=== PATIENT | male | born 1960 | race Caucasian/White ===

== ENCOUNTER 2021-02-10 12:53 | Outpatient (CLI) | payer BC, SELFPAY ==
--- NOTE | ~2021-02-10 | US_ITS ---
EXAMINATION: US venous doppler [facility] DATE: 02/10/2021 13:24 INDICATION: Left lower crow swelling TECHNIQUE: Ragsdale scale images without and with compression and Doppler images of the left lower extrem ity veins were obtained. COMPARISON: None FINDINGS: The left common femoral vein, profunda femoral vein, femoral vein, and greater saphenous ve in are patent. There is thrombosis of the left popliteal vein, peroneal trunk, posterior tibial, susana rocnemius, and soleus veins. IMPRESSION: 1. Deep venous thrombosis of the left popliteal vein, peroneal trunk, posterior tibial, gastrocnemius , and soleus veins. Reviewed, dictated and finalized at location B. IMPRESSION: 1. Deep venous thrombosis of the left popliteal vein, peroneal trunk, posterior tibial, gastrocnemius, and soleus veins.
== END 2021-02-10 12:54 | disposition home or self-care (01) ==
LOC: ANHIMG 13:00
PROVIDERS: PCP Family Medicine; Visit Provider Family Medicine
DX: M79.89 Other specified soft tissue disorders (principal); I82.432 Acute embolism and thrombosis of left popliteal vein; I82.452 Acute embolism and thrombosis of left peroneal vein; I82.442 Acute embolism and thrombosis of left tibial vein; I82.462 Acute embolism and thrombosis of left calf muscular vein; I82.4Z2 Acute embolism and thrombosis of unspecified deep veins of left distal lower extremity
CPT/HCPCS: 93971

== ENCOUNTER → 2021-07-07 14:54 | Outpatient (CLI) | payer BC, SELFPAY ==
--- NOTE | ~2021-07-07 | US_ITS ---
EXAMINATION: US venous doppler [facility] DATE: 07/07/2021 15:26 INDICATION: Acute embolism and thrombosis of unspecified deep vein. TECHNIQUE: Grayscale ultrasound images without and with compression and Doppler ultrasound images of the left lower extremity veins were obtained. COMPARISON: Ultrasound 02/02/2021 FINDINGS: The visualized portions of left common femoral vein, profunda (deep) femoral vein, femoral vein, verona michael veins, posterior tibial veins, and greater saphenous vein outflow are patent. There is nonocclus austin thrombus in left popliteal vein. IMPRESSION: 1. Nonocclusive thrombus in left popliteal vein with interval improvement in distribution. Reviewed, dictated and finalized at location B. ENT COUNSELOR IMPRESSION: 1. Nonocclusive thrombus in left popliteal vein with interval improvement in d istribution.
== END ==
PROVIDERS: PCP Family Medicine; Visit Provider Family Medicine
DX: I82.432 Acute embolism and thrombosis of left popliteal vein (principal)
CPT/HCPCS: 93971

== ENCOUNTER 2021-09-11 10:21 | Outpatient (CLI) | payer BC, SELFPAY ==
[2021-09-11 12:41] LABS: SARS-CoV-2 RNA PCR Positive (Negative)
== END 2021-09-11 10:22 | disposition home or self-care (01) ==
LOC: CHSLAB 10:23
PROVIDERS: PCP Family Medicine; Visit Provider Family Medicine
DX: U07.1 COVID-19 (principal); R68.89 Other general symptoms and signs; R05.9 Cough, unspecified; R68.83 Chills (without fever)
CPT/HCPCS: C9803; U0003; U0005

== ENCOUNTER 2021-10-30 09:28 | Outpatient (CLI) | payer BC, SELFPAY ==
--- NOTE | ~2021-10-30 | US_ITS ---
EXAMINATION:US venous doppler LE LT INDICATION:History of left deep venous thrombosis. Patient on blood thinners. TECHNIQUE: Multiple grayscale, color flow and Doppler images of the left lower extremity deep venous systems were obtained and reviewed. COMPARISON:07/07/2022 FINDINGS: The common femoral, and superficial femoral veins demonstrate normal respiratory variation, augmentation and compressibility. Color flow is also seen within the posterior tibial, peroneal, gr eater saphenous and profunda veins. There is chronic partially occlusive deep venous thrombosis of th e left popliteal vein. IMPRESSION: 1: Chronic partially occlusive deep venous thrombosis of the left popliteal vein. Reviewed, dictated and finalized at location B. IMPRESSION: 1: Chronic partially occlusive deep venous thrombosis of the left popliteal latisha mustafa
== END 2021-10-30 09:29 | disposition home or self-care (01) ==
LOC: ANHIMG 09:30
PROVIDERS: PCP Family Medicine; Visit Provider Internal Medicine Hematology & Oncology
DX: I82.4Y2 Acute embolism and thrombosis of unspecified deep veins of left proximal lower extremity (principal)
CPT/HCPCS: 93971

== ENCOUNTER 2022-02-09 08:47 | Outpatient (CLI) | payer BC, SELFPAY ==
--- NOTE | ~2022-02-09 | US_ITS ---
EXAMINATION: US venous doppler [facility] DATE: 02/09/2022 09:13 INDICATION: Deep venous thrombosis TECHNIQUE: Ragsdale scale images without and with compression and Doppler images of the left lower extrem ity veins were obtained. COMPARISON: 10/30/2021 FINDINGS: There is chronic eccentric thrombus in the left popliteal vein with improvement since the c omparison examination. The left common femoral vein, profunda femoral vein, femoral vein, peroneal tr unk, posterior tibial veins, and greater saphenous vein are patent. IMPRESSION: 1. Persistent partial thrombosis of the left popliteal vein with improvement since the comparison exa mination. Reviewed, dictated and finalized at location A. IMPRESSION: 1. Persistent partial thrombosis of the left popliteal vein with improvement si nce the comparison examination.
== END 2022-02-09 08:48 | disposition home or self-care (01) ==
PROVIDERS: PCP Family Medicine; Visit Provider Internal Medicine Hematology & Oncology
DX: I82.432 Acute embolism and thrombosis of left popliteal vein (principal)
CPT/HCPCS: 93971

== ENCOUNTER 2022-04-29 09:57 | Outpatient (CLI) | payer BC, SELFPAY ==
[2022-04-29 18:48] LABS: Alanine Aminotransferase 88 U/L (6-50); Albumin Level 4.4 g/dL (3.5-5.1); Alkaline Phosphatase 141 U/L (38-126); Anion Gap 14 mmol/L (8-16); Aspartate Amino Transferase 106 U/L (17-59); Bilirubin,Total 0.4 mg/dL (0.2-1.3); Blood Urea Nitrogen 10 mg/dL (9-20); Calcium 9.2 mg/dL (8.4-10.2); Carbon Dioxide 26 mmol/L (22-30); Chloride 103 mmol/L (98-107); Estimated Glomerular Filt Rate > 60; Glucose 104 mg/dL (65-110); Potassium 4.1 mmol/L (3.4-5.0); Sodium 143 mmol/L (137-145)
[2022-04-29 19:39] LABS: Hepatitis B Surface Antigen Negative (Negative)
[2022-04-29 19:44] LABS: HAV RESULT Negative (Negative); Hepatitis B Core IgM Result Negative (Negative)
[2022-04-29 19:56] LABS: Hepatitis C Virus Antibody Negative (Negative)
[2022-05-05 07:56] LABS: Testosterone Free 62.4 pg/mL (35.0-155.0); Testosterone Total 557 ng/dL (250-1100)
== END 2022-04-29 09:58 | disposition home or self-care (01) ==
LOC: ANHGOSHLAB 10:03
PROVIDERS: PCP Family Medicine; Visit Provider Family Medicine
DX: R79.89 Other specified abnormal findings of blood chemistry (principal); R53.83 Other fatigue
CPT/HCPCS: 36415; 80053; 80074; 84402; 84403; 84443

== ENCOUNTER → 2022-05-25 10:52 | Outpatient (CLI) | payer BC, SELFPAY ==
--- NOTE | ~2022-05-25 | US_ITS ---
EXAMINATION: US venous doppler [facility] DATE: 05/25/2022 11:12 INDICATION: Left lower limb deep venous thrombosis currently anticoagulated. TECHNIQUE: Grayscale ultrasound images without and with compression and Doppler ultrasound images of the left lower extremity veins were obtained. COMPARISON: None. FINDINGS: The left popliteal vein is partially compressible with persistent nonocclusive peripheral hypoechoic thrombus with peripheral linear echogenic margins consistent with chronic thrombus. The visualized po rtions of left common femoral vein, profunda (deep) femoral vein, femoral vein, peroneal veins, poste rior tibial veins, gastrocnemius vein and greater saphenous vein outflow are patent. IMPRESSION: 1. Persistent chronic nonocclusive deep venous thrombus in the left popliteal vein. No new deep veno us thrombosis in the left lower limb. Reviewed, dictated and finalized at location B. IMPRESSION: 1. Persistent chronic nonocclusive deep venous thrombus in the left popliteal vein. No new deep venous thrombosis in the left lower limb.
== END ==
PROVIDERS: PCP Internal Medicine Hematology & Oncology; Visit Provider Internal Medicine Hematology & Oncology
DX: I82.532 Chronic embolism and thrombosis of left popliteal vein (principal)
CPT/HCPCS: 93971

== ENCOUNTER 2022-10-29 12:38 | Outpatient (CLI) | payer SELFPAY ==
[2022-10-29 19:42] LABS: Alanine Aminotransferase 100 U/L (6-50); Albumin Level 4.4 g/dL (3.5-5.1); Alkaline Phosphatase 148 U/L (38-126); Anion Gap 11 mmol/L (8-16); Aspartate Amino Transferase 115 U/L (17-59); Bilirubin,Total 0.8 mg/dL (0.2-1.3); Blood Urea Nitrogen 9 mg/dL (9-20); Calcium 9.3 mg/dL (8.4-10.2); Carbon Dioxide 25 mmol/L (22-30); Chloride 108 mmol/L (98-107); Cholesterol 168 mg/dL (0-200); Estimated Glomerular Filt Rate > 60; Glucose 111 mg/dL (65-110); HDL Direct 43 mg/dL; Potassium 4.5 mmol/L (3.4-5.0); Sodium 144 mmol/L (137-145); Triglycerides 95 mg/dL (<150); Uric Acid 8.1 mg/dL (3.5-8.5)
[2022-10-29 19:52] LABS: LDL Cholesterol Direct 96 mg/dL
[2022-10-29 20:11] LABS: Prostate Specific Antigen 0.7 ng/mL (< OR = 4.0)
[2022-10-29 20:24] LABS: Vitamin D 25 Hydroxy 47.5 ng/mL
[2022-10-29 20:47] LABS: Basophils Percent Auto 0.5 % (0.2-1.2); Eosinophils Absolute Auto 0.1 K/mm3 (0-0.3); Eosinophils Percent Auto 2.4 % (0-4.4); Hematocrit 44.8 % (42.0-52.0); Hemoglobin 15.6 g/dL (14.0-18.0); Immature Granulocyte Absolute 0.01 K/mm3 (0.00-0.031); Immature Granulocyte Percent A 0.3 % (0-0.5); Lymphocytes Absolute Auto 1.71 K/mm3 (0.9-3.2); Lymphocytes Percent Auto 45.5 % (18.3-44.2); Mean Corpuscular HGB Conc 34.8 g/dl (32-36); Mean Corpuscular Hemoglobin 34.8 pg (26-34); Mean Platelet Volume 12.3 fl (7.4-10.4); Monocytes Absolute Auto 0.6 K/mm3 (0.1-0.6); Monocytes Percent Auto 14.6 % (2.6-8.5); Neutrophils Absolute Auto 1.4 K/mm3 (1.3-6.7); Neutrophils Percent Auto 36.7 % (45.5-73.1); Platelet Count Result 112 k/mm3 (150-375); Red Blood Count 4.48 M/mm3 (4.6-6.20); Red Cell Distribution Width 11.9 % (11.5-14.5); White Blood Count 3.8 K/mm3 (4.5-10.0)
== END 2022-10-29 12:39 | disposition home or self-care (01) ==
LOC: ANHGOSHLAB 12:39
PROVIDERS: PCP Family Medicine; Visit Provider Family Medicine
DX: Z00.00 Encounter for general adult medical examination without abnormal findings (principal); Z13.29 Encounter for screening for other suspected endocrine disorder; R79.89 Other specified abnormal findings of blood chemistry; I10 Essential (primary) hypertension; Z13.220 Encounter for screening for lipoid disorders; E53.8 Deficiency of other specified B group vitamins; E55.9 Vitamin D deficiency, unspecified; Z12.5 Encounter for screening for malignant neoplasm of prostate; G62.9 Polyneuropathy, unspecified; F98.8 Other specified behavioral and emotional disorders with onset usually occurring in childhood and adolescence
CPT/HCPCS: 36415; 80053; 80061; 82306; 82607; 84153; 84443; 84550; 85025; 86735; 86765; G0103

== ENCOUNTER 2023-04-28 10:11 | Outpatient (CLI) | payer OTHER, SELFPAY ==
[2023-04-28 19:05] LABS: Basophils Percent Auto 0.7 % (0.2-1.2); Eosinophils Absolute Auto 0.1 K/mm3 (0-0.3); Eosinophils Percent Auto 2.3 % (0-4.4); Hematocrit 45.7 % (42.0-52.0); Hemoglobin 15.5 g/dL (14.0-18.0); Immature Granulocyte Absolute 0.02 K/mm3 (0.00-0.031); Immature Granulocyte Percent A 0.4 % (0-0.5); Immature Platelet Fraction Pct 6.7 % (0.9-11.2); Lymphocytes Absolute Auto 2.01 K/mm3 (0.9-3.2); Mean Corpuscular HGB Conc 33.9 g/dl (32-36); Mean Corpuscular Hemoglobin 35.6 pg (26-34); Mean Corpuscular Volume 104.8 fl (80-100); Mean Platelet Volume 11.9 fl (7.4-10.4); Monocytes Absolute Auto 0.7 K/mm3 (0.1-0.6); Monocytes Percent Auto 13.1 % (2.6-8.5); Neutrophils Absolute Auto 2.7 K/mm3 (1.3-6.7); Neutrophils Percent Auto 47.5 % (45.5-73.1); Platelet Count Result 132 k/mm3 (150-375); Red Blood Count 4.36 M/mm3 (4.6-6.20); Red Cell Distribution Width 11.7 % (11.5-14.5); White Blood Count 5.6 K/mm3 (4.5-10.0)
[2023-04-28 19:22] LABS: Alanine Aminotransferase 71 U/L (6-50); Alkaline Phosphatase 134 U/L (38-126); Anion Gap 5 mmol/L (8-16); Aspartate Amino Transferase 72 U/L (17-59); Bilirubin,Total 0.7 mg/dL (0.2-1.3); Blood Urea Nitrogen 14 mg/dL (9-20); Carbon Dioxide 31 mmol/L (22-30); Chloride 103 mmol/L (98-107); Estimated Glomerular Filt Rate > 60; Glucose 120 mg/dL (65-110); Potassium 5.2 mmol/L (3.4-5.0); Sodium 139 mmol/L (137-145)
== END 2023-04-28 10:12 | disposition home or self-care (01) ==
LOC: ANHGOSHLAB 10:13
PROVIDERS: PCP Family Medicine; Visit Provider Family Medicine
DX: R79.89 Other specified abnormal findings of blood chemistry (principal); R53.83 Other fatigue; D72.819 Decreased white blood cell count, unspecified
CPT/HCPCS: 36415; 80053; 85025; 85055

== ENCOUNTER 2023-06-09 11:00 | Outpatient (RCR) | payer OTHER, SELFPAY ==
--- NOTE | 2023-05-12 10:12 | OPREHPOC ---
Outpatient Therapy Plan of Care This is a Multidisciplinary Plan of Care that may contain components documented by all disciplines (PT, OT, and ST.) PT Problem 1 PT Problem #1 Knowledge Deficit PT Goal 1 Goal Pt to be IND with issued HEP Target Visit 8 PT Problem 2 PT Problem #2 Pain PT Goal 1 Goal Pt to report L hip pain no greater than 3/10 in the last week Target Visit 8 PT Goal 2 Goal Pt to report 75% improvement in overall symptoms. Target Visit 8 PT Problem 3 PT Problem #3 Impaired Range of Motion PT Goal 1 Goal Pt to demonstrate 10 deg of passive hip int rot. Target Visit 8 PT Goal 2 Goal Pt to report no increase in pain with passive hip flexion to 100 deg on L. Target Visit 8 PT Problem 4 PT Problem #4 Impaired Gait PT Goal 1 Goal Pt to ambulate with a normal heel strike and an improved stride length. Target Visit 8 PT Goal 2 Goal Pt to demonstrate a distance of 400ft during the 2 min walk test. Target Visit 8 PT Problem 5 PT Problem #5 Impaired Functional Mobil PT Goal 1 Goal Pt to return to golf without limitations Target Visit 8 PT Goal 2 Goal Pt to be able to lift and carry 20lb from ground level. Target Visit 8
--- NOTE | 2023-05-12 10:13 | PTOPEVAL1 ---
Assessment and note entered by Shane Harkins, PT, DPT Evaluation Information Assessment Status Evaluation Diagnosis L hip pain Onset chronic Subjective Information Pt reports L groin (adductor) pain. He reports he has had this pain but multiple years but it has increased since the beginning of the summer. He states sudden movements will cause a sharp pain. Pt states he is seeing an orthopedic doctor next week, and is waiting to get his imaging until then . Reported Pain Level Pain Score 2: Self Report Assessment PT Clinical Summary Blanco presents to therapy today with a diagnosis of L hip pain. Today he demonstrates decreased passive hip ROM dawna, good hip strength, decreased hip flexibility, moderate gait deviations, and tenderness to palpation along the L hip piriformis and adductor. Pt ambulates with a shorted stride length and has a strong lateral heel strike on the RLE. Skilled therapy services are indicated to manage pain, improve hip mobility, improve gait pattern, and to return to PLOF. Plan of Care Interventions Electrical Stimulation,Gait Training,Hot Pack/Cold Pack,Manual Therapy,Neuro Re-education,Patient/ Caregiver Educati,Therapeutic Activities, Therapeutic Exercise PT Services Indicated Yes Treatment Frequency and 2x/wk for 8 visits Duration These treatments will address the objective and functional deficits as defined above. The patient will be advanced safely and appropriately in order for the patient to progress towards his/her prior level of function. Additional exercises will be introduced and as well as a comprehensive home exercise program upon discharge, if needed, ?to ensure carryover of functional gains achieved in the clinic. This treatment plan has been reviewed and agreement upon by the patient.
--- NOTE | 2023-05-26 08:57 | PCPTNOTE ---
Patient called and left voicemail stating he had to cancel his appointment this date with no reason given.
--- NOTE | 2023-05-28 09:22 | PCPTNOTE ---
Pt cancelled today stating he found out he has to have a hip replacement but not sure when and does not want to use anymore PT visit until he know surgery date. He agreed to have one more visit for a DC.
--- NOTE | 2023-05-31 13:36 | PCPTNOTE ---
Pt NS visit today due to a work training and forgot to call. Pt did not want to R/S due to a short week before he leaves out of town. Pt was reminded of day and time for next visit, Re-eval.
--- NOTE | 2023-06-03 08:50 | PCPTNOTE ---
Patient reports he needs to cancel due to being out of town.
--- NOTE | 2023-06-09 11:55 | PTOPEVAL1 ---
Assessment and note entered by Shane Harkins, PT, DPT Evaluation Information Assessment Status Discharge Diagnosis L hip pain Onset chronic Subjective Information Pt states he got inserts for his shoe and he feels like these are helping with his back pain. He states he was told he will likely need a hip replacement and wants to know what he can do to prep for this. Today will be treated like a pre-op hip prep. Reported Pain Level Pain Score 3: Self Report Assessment PT Clinical Summary Blanco presents to therapy today for his progress report following 5 visits of therapy to treat his diagnosis of L hip pain. He reports minimal improvement since starting therapy and states he is going to have to have a total hip replacement. Today he was instructed in a home strengthening program to prep for his surgery. He states he will continue will this HEP daily until he has surgery . Plan of Care Interventions Electrical Stimulation,Gait Training,Hot Pack/Cold Pack,Manual Therapy,Neuro Re-education,Patient/ Caregiver Educati,Therapeutic Activities, Therapeutic Exercise PT Services Indicated No Treatment Frequency and to be discharged Duration These treatments will address the objective and functional deficits as defined above. The patient will be advanced safely and appropriately in order for the patient to progress towards his/her prior level of function. Additional exercises will be introduced and as well as a comprehensive home exercise program upon discharge, if needed, ?to ensure carryover of functional gains achieved in the clinic. This treatment plan has been reviewed and agreement upon by the patient.
== END 2023-06-09 14:54 | disposition home or self-care (01) ==
LOC: ANHGOSHPT 11:00
PROVIDERS: PCP Family Medicine; Visit Provider Family Medicine
DX: M25.552 Pain in left hip (principal); G89.29 Other chronic pain
CPT/HCPCS: 97110; 97112; 97161; 97530; 99199

== ENCOUNTER 2023-06-30 09:01 | Outpatient (CLI) | payer OTHER, SELFPAY ==
--- NOTE | 2023-07-26 10:24 | WPDSLEEPSTUD ---
Sleep Study Date of Study: 06/30/23 Ordering Provider: ARMEN Major Interpreting Physician: Shasta Haider DO Sleep Study Type: Split Polysomnogram Height: 1.83 m Weight: 108.862 kg Body Mass Index: 32.5 Neck Circumference (inches): 18 Clive: 12 Reason for Sleep Study Unrefreshing sleep, daytime hypersomnia Sleep History The patient is a 62-year-old male with ADHD, history of left leg deep venous thrombosis, peripheral neuropathy and gout that had a sleep study ordered by the Pulmonary group to requalify for PAP therapy. The patient was diagnosed with sleep apnea in 2013 but was unable to tolerate CPAP. The sleep intake form was not included in his paperwork so I am unable to comment on his sleep habits or schedule. [facility] Past Medical History Medical History ADD (attention deficit disorder) without hyperactivity Chronic gout Chronic left hip pain Deep vein thrombosis (DVT) of left lower extremity Elevated LFTs History of COVID-19 (~08/2021) GRACE (obstructive sleep apnea) Perforated nasal septum Peripheral neuropathy Surgical History Surgical History History of tonsillectomy (~1965) Hx of inguinal hernia surgery (~2004) Left Family History Family History Father Family history of type 2 diabetes mellitus Other Hypertension Social History Social History Social History: Single. 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 Gender identity (if verbalized by the patient): Male Sexual Orientation (if Verbalized by the Patient): Straight or Heterosexual Agree to blood products: Yes Medications Home Medications Medication Instructions Recorded Confirmed Type colchicine 0.6 mg tablet 0.6 mg PO .COMPLEX #10 tabs 04/08/20 06/02/23 Rx indomethacin 25 mg capsule 25 mg PO BID PRN gout flareup #30 05/20/22 06/02/23 Rx caps rivaroxaban 20 mg tablet (Xarelto) 20 mg PO DAILY #90 tabs 12/21/22 06/02/23 Rx tadalafil 20 mg tablet (Cialis) 20 mg PO DAILY PRN sexual activity 05/05/23 06/02/23 Rx #30 tabs eszopiclone 2 mg tablet (Lunesta) 2 mg PO ONCE #1 tablet 06/02/23 06/02/23 Rx allopurinol 300 mg tablet 300 mg PO DAILY #90 tabs 06/24/23 Rx pregabalin 150 mg capsule (Lyrica) 150 mg PO BID #180 caps 06/24/23 Rx dextroamphetamine-amphetamine 20 20 mg PO BID #60 tabs 07/15/23 Rx mg tablet (Adderall) Sleep Procedure A full night polysomnogram using the [employer] multi-channel system recorded the standard physiologic parameters including EEG, EOG, submentalis EMG, anterior tibialis EMG, EKG, body position, nasal and oral airflow using nasal pressure sensor and thermistor.? Respiratory parameters of chest and abdominal movements were recorded with Respiratory Inductance Plethysmography belts. Oxygen saturation was recorded by pulse oximetry. Video monitoring was also performed. Sleep stages, periodic limb movements, and EEG arousals were scored in 30 second epochs according to the criteria of the AASM Scoring Manual. The Apnea-Hypopnea Index was calculated using CMS guidelines for definition of hypopnea with 4% O2 desaturations
[2023-07-26 10:34] VITALS: BMI 32.5
== END 2023-07-01 06:44 | disposition home or self-care (01) ==
LOC: ANHCSM 09:01
PROVIDERS: Visit Provider Physician Assistant
DX: G47.30 Sleep apnea, unspecified (principal); G47.10 Hypersomnia, unspecified
CPT/HCPCS: 95811

== ENCOUNTER 2023-06-30 10:03 | Outpatient (CLI) | payer OTHER, SELFPAY ==
--- NOTE | ~2023-06-30 | US_ITS ---
EXAMINATION: US venous doppler [facility] DATE: 06/30/2023 10:47 INDICATION: Acute embolism and thrombosis of unspecified deep veins. TECHNIQUE: Grayscale ultrasound images without and with compression and Doppler ultrasound images of the left lower extremity veins were obtained. COMPARISON: Ultrasound 05/25/2022 FINDINGS: The visualized portions of left common femoral vein, profunda (deep) femoral vein, femoral vein, verona michael veins, posterior tibial veins, and greater saphenous vein outflow are patent. Again seen is nono cclusive thrombus in the left popliteal vein. IMPRESSION: 1. Chronic nonocclusive deep vein thrombosis involving the left popliteal vein. Reviewed, dictated and finalized at location A. ER MECHANIC IMPRESSION: 1. Chronic nonocclusive deep vein thrombosis involving the left popliteal vein .
== END 2023-06-30 10:04 ==
PROVIDERS: PCP Internal Medicine Hematology & Oncology; Visit Provider Internal Medicine Hematology & Oncology
DX: I82.532 Chronic embolism and thrombosis of left popliteal vein (principal)
CPT/HCPCS: 93971

== ENCOUNTER 2023-08-24 15:59 | Outpatient (CLI) | payer OTHER, SELFPAY ==
--- NOTE | 2023-08-24 16:03 | ECG_ITS ---
Measurements Intervals [place] Rate: 91 P: 66 WA: 190 QRS: -27 QRSD: 99 T: 34 QT: 363 QTc: 447 Interpretive Statements SINUS RHYTHM INCOMPLETE RIGHT BUNDLE BRANCH BLOCK BASELINE ARTIFACT- II, III, AVF BORDERLINE ECG NO PREVIOUS ECG AVAILABLE FOR COMPARISON Electronically Signed On 08-24-2023 16:16:52 BOBTAILER by Giovanni Gonzalez D.O.
[2023-08-24 16:42] LABS: Hematocrit 43.8 % (42.0-52.0)
[2023-08-24 16:49] LABS: Albumin Level 4.2 g/dL (3.5-5.1); Estimated Glomerular Filt Rate > 60; Glucose 109 mg/dL (65-110)
== END 2023-08-24 16:00 | disposition home or self-care (01) ==
LOC: ANHLAB 16:00
PROVIDERS: Visit Provider Orthopaedic Surgery
DX: Z01.818 Encounter for other preprocedural examination (principal); M16.12 Unilateral primary osteoarthritis, left hip; G47.33 Obstructive sleep apnea (adult) (pediatric); I82.402 Acute embolism and thrombosis of unspecified deep veins of left lower extremity; R79.89 Other specified abnormal findings of blood chemistry; I45.10 Unspecified right bundle-branch block; R93.1 Abnormal findings on diagnostic imaging of heart and coronary circulation
CPT/HCPCS: 36415; 82040; 82565; 82947; 85014; 85018; 93005

== ENCOUNTER 2023-11-01 11:04 | Outpatient (CLI) | payer OTHER, SELFPAY ==
[2023-11-01 12:35] LABS: Basophils Percent Auto 0.5 % (0.2-1.2); Eosinophils Absolute Auto 0.1 K/mm3 (0-0.3); Eosinophils Percent Auto 1.4 % (0-4.4); Hemoglobin 14.6 g/dL (14.0-18.0); Immature Granulocyte Absolute 0.01 K/mm3 (0.00-0.031); Immature Granulocyte Percent A 0.2 % (0-0.5); Immature Platelet Fraction Pct 15.2 % (0.9-11.2); Lymphocytes Absolute Auto 2.39 K/mm3 (0.9-3.2); Mean Corpuscular Hemoglobin 34.6 pg (26-34); Mean Corpuscular Volume 101.9 fl (80-100); Mean Platelet Volume 13.9 fl (7.4-10.4); Monocytes Absolute Auto 0.7 K/mm3 (0.1-0.6); Monocytes Percent Auto 11.4 % (2.6-8.5); Neutrophils Absolute Auto 2.5 K/mm3 (1.3-6.7); Neutrophils Percent Auto 44.5 % (45.5-73.1); Platelet Count Result 113 k/mm3 (150-375); Red Blood Count 4.22 M/mm3 (4.6-6.20); Red Cell Distribution Width 11.9 % (11.5-14.5); White Blood Count 5.7 K/mm3 (4.5-10.0)
[2023-11-01 12:44] LABS: Urine Cotinine NEGATIVE
[2023-11-01 12:49] LABS: Albumin Level 4.2 g/dL (3.5-5.1); Estimated Glomerular Filt Rate > 60; Glucose 110 mg/dL (65-110)
[2023-11-01 13:08] LABS: Platelet Clumps Present; Platelet Estimate Slightly Decreased (Adequate); Schistocytes None Seen
[2023-11-01 13:54] LABS: MRSA (PCR) NOT DETECTED (NOT DETECTE)
[2023-11-01 15:13] LABS: Hemoglobin A1C 5.6 % (<5.7)
== END 2023-11-01 11:05 | disposition home or self-care (01) ==
LOC: ANHSURGERY 11:10
PROVIDERS: PCP Family Medicine; Visit Provider Orthopaedic Surgery
DX: M16.12 Unilateral primary osteoarthritis, left hip (principal); Z01.818 Encounter for other preprocedural examination
CPT/HCPCS: 80307; 82040; 82565; 82947; 83036; 85025; 85055; 87641

== ENCOUNTER 2023-11-29 01:47 | Day surgery (SDC) | payer OTHER, SELFPAY ==
[2023-11-01 11:19] VITALS: BMI 33.6
--- NOTE | 2023-11-01 11:56 | PC.NURSE ---
Report to the Outpatient Waiting Room, entrance under the green pavilion located off [facility], at time __1000 on date __11/29/23 . Planned Procedure Time: __1200 . Time changes happen often and if your time is changed the preop area will call you the afternoon before. - You and your visitor will be asked to self-screen and do not enter if you have any COVID symptoms. - A mask is optional within the hospital at this time. Patients may have clear liquids (water, carbonated beverages, clear teas, apple juice) until 3 hours prior to surgery ( 9:00 AM)with a maximum of 20 ounces. - No food from midnight until time of surgery - Infants may have breast milk until 4 hours before surgery, formula 6 hours prior to surgery. - Children will be allowed to drink immediately following surgery. If applicable, please bring a bottle or sippy cup to assist with drinking. Juice, water, soda, and popsicles are readily available. For infants on formula, please bring formula the day of surgery. Pacifiers are allowed. Take the following medications with a SIP of water the morning of surgery: __PREGABALIN DO NOT STOP ANY OF YOUR OTHER PRESCRIPTION MEDICATIONS PRIOR TO SURGERY ?EXCEPT THE FOLLOWING Medications to discontinue per physician HOLD RIVAROXABAN 5 DAYS PRE OP PER DR SARAVIA LAST DOSE 11/23/23 ALL VITAMINS AND SUPPLEMENTS HOLD 3 DAYS PRE OP .LAST DOSE 11/25/23 Please no make-up, nail macedonian, hairspray, perfume, deodorant, or body powder the day of surgery. No jewelry (including any body piercings) or valuables the day of surgery, leave them at home. Please take a shower or bath the night before, or the morning of, surgery with an antibacterial soap. Wear comfortable, loose fitting clothing. Children are encouraged to wear pajamas. - Jewelry must be removed prior to entering the operating room. Rings and piercings that are not removed may be cut off. - The hospital will not accept responsibility for valuables. - Please leave all valuables, including medications, at home the day of surgery. If you are going home after surgery, a licensed front end loader driver must drive you home. - NO public transportation without another adult if you receive anesthesia. - We recommend that an adult stay with you for 24 hours following discharge. - We also recommend that you do not drive, make important decision, drink alcoholic beverages, or take any drugs that were not prescribed by your health care provider for at least 24 hours after your discharge basilio Follow any additional instructions given to you from your surgeon. If you or anyone in your household have experienced Covid symptoms in the past week, please notify your surgeon or the nurse liaison at the phone number below for possible testing. VERBAL AND WRITTEN instructions given to __PATIENT and asked if any additional questions and then verbalized understanding. Patient advised to call surgeon office or pre surgery nurse liaison [phone] if any additional questions.
[2023-11-01 12:13] VITALS: BP 142/91; PULSE 88; RESP 18; TEMP 36.9; O2SAT 98
[2023-11-29] VITALS (13 sets, daily range): BP systolic 121–147; BP diastolic 68–106; PULSE 53–86; RESP 12–18; TEMP 35.9–36.8; O2SAT 92–100
--- NOTE | ~2023-11-29 | XR_ITS ---
EXAM: XR hip LT min 2V DATE: 11/29/2023 15:20 HISTORY: POST OP LEFT TOTAL HIP . COMPARISON: 05/20/2023, images only. FINDINGS: Normal mineralization. Uncomplicated appearing left hip arthroplasty hardware. No fracture or dislocation. No lytic or blastic lesion. Gas over the joint space and hip soft tissues. No erosio n or periosteal change. Soft tissues within normal limits. Abdominal wall soft tissue anchor. No unex pected radiopaque foreign body. IMPRESSION: Expected postsurgical changes, with no radiographic evidence of procedure or hardware rel ated complication. Reviewed, dictated and finalized at location K. IMPRESSION: Expected postsurgical changes, with no radiographic evidence of pro cedure or hardware related complication.
[2023-11-29] MEDS: LACTATED RINGERS 1,000 ML 30 ML IV CONT ×2 (09:00→14:58)
[2023-11-29] MEDS: ACETAMINOPHEN 500 MG TABLET 1000 MG PO ×2 (09:15→17:40)
--- NOTE | 2023-11-29 11:44 | WPDHPUPDATE1 ---
History and Physical Update Update Date/Time: 11/29/23 11:44 History and Physical has been reviewed, including an updated exam of the patient. There are NO changes in the patient's condition. Risks, benefits, and alternatives have been discussed and questions answered. Patient agrees to proceed with procedure.
--- NOTE | 2023-11-29 11:48 | WPDANESEPPF ---
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 Patient Data Age: 63 Gender: M Height: 1.83 m Weight: 110.6 kg Last Vital Signs Temp 98.1 F 11/29/23 11:22 Pulse 86 11/29/23 11:22 Resp 16 11/29/23 11:22 BP 138/68 11/29/23 11:22 Pulse Ox 100 11/29/23 11:22 O2 Del Method Room Air 11/29/23 11:22 Allergies Allergy/AdvReac Type Severity Reaction Status Date / Time No Known Allergies Allergy Unknown Verified 11/29/23 11:18 Home Medications Medication Instructions Recorded Confirmed Type colchicine 0.6 mg tablet 0.6 mg PO .COMPLEX #10 tabs 04/08/20 11/29/23 Rx allopurinol 300 mg tablet 300 mg PO DAILY #90 tabs 06/24/23 11/29/23 Rx acetaminophen 650 mg 1,300 mg PO PRN PRN Pain 11/01/23 11/29/23 History tablet,extended release (Tylenol Arthritis Pain) indomethacin 25 mg capsule 25 mg PO PRN PRN gout flareup 11/01/23 11/29/23 History multivitamin 1 tablet PO DAILY 11/01/23 11/29/23 History omega-3 fatty acids 1,000 mg PO DAILY 11/01/23 11/29/23 History turmeric 400 mg capsule 400 mg PO DAILY 11/01/23 11/29/23 History dextroamphetamine-amphetamine 20 20 mg PO BID #60 tabs 11/02/23 11/02/23 Rx mg tablet (Adderall) pregabalin 150 mg capsule (Lyrica) 150 mg PO BID #180 caps 11/02/23 11/02/23 Rx rivaroxaban 20 mg tablet (Xarelto) 20 mg PO DAILY #90 tabs 11/09/23 Rx aspirin 81 mg tablet,delayed 81 mg PO BID 2 days #4 tabs 11/29/23 Rx release oxycodone-acetaminophen 5 mg-325 1 - 2 tablet PO Q4-6H PRN pain #30 11/29/23 Rx mg tablet tabs Patient hx anesthesia problems: none Family hx anesthesia problems: none Results Review: All pre-operative results and documents have been reviewed as part of the pre-operative evaluation. [facility] Past Medical History Medical History ADD (attention deficit disorder) without hyperactivity Chronic gout Chronic left hip pain Deep vein thrombosis (DVT) of left lower extremity Elevated LFTs History of COVID-19 (~08/2021) GRACE (obstructive sleep apnea) Perforated nasal septum Peripheral neuropathy Surgical History Surgical History History of tonsillectomy (~1965) Hx of inguinal hernia surgery (~2004) Left Family History Family History Father Family history of type 2 diabetes mellitus Other Hypertension Social History Social History Social History: Single. Lives alone Caffeine-sometimes Smoking status: Never smoker Second hand tobacco smoke exposure: No Additional smoking assessment comments: DENIES ANY FORM OF TOBACCO Alcohol intake: current Drinks per week: 12 Alcohol use details: occasionally-beer Substance use: never Substance use type: does not use Lack of Transportation: No Lack of Food: Never True Current Housing: I Have Housing Concerned About Future Housing: No Difficulty Paying Gas/Electric Bills: No Difficulty Paying for Meds: No Currently Unemployed: No Education: Master's Degree or Higher Difficulty w/ Childcare or Family Care: No Living arrangements: alone Occupation/Education: 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
[2023-11-29] MEDS: TRANEXAMIC ACID 1,000MG/ISO100 1,000 MG/100 ML BAG 200 MG IVPB (12:24)
[2023-11-29] MEDS: ceFAZolin 2 GM/D5W 50 ML 2 GM/50 ML BAG IVPB ×2 (12:29→17:40)
[2023-11-29] MEDS: SODIUM CHLORIDE 0.9% IV 37.7 ML, MORPHINE SULFATE INJ (*CRX) 2 MG, ROPivacaine HCL 1% 2... INFILTRATE (13:00)
[2023-11-29] MEDS: TRANEXAMIC ACID 1,000 MG/10 ML AMPUL 1000 MG IV PUSH (14:22)
--- NOTE | 2023-11-29 14:38 | W.PM.PROC2 ---
Procedure Note - Detailed Date of Procedure 11/29/23 Pre-op Diagnosis primary oa left hip Post-op Diagnosis Same Procedure Performed Left Total Hip Arthroplasty Surgeon Dain Call MD Radiology Practitioner Assistant Annika Chowdary PA-C Anesthesia General Findings Posterior trochanteric overhang. Large femoral head. Excellent bone quality, and stability. Sizing matched preoperative templating. Description of Procedure The patient was given preoperative antibiotics. A general anesthetic was administered. The patient was carefully placed in the lateral decubitus position on the PEG board. The shoulders and hips were carefully positioned for component and leg length positioning reference. The hip was prepped and draped in the usual sterile fashion. A longitudinal incision was created over the posterior aspect of the greater trochanter. Careful dissection was brought down through the deep fascia with electrocautery. A minimally invasive optimized posterior approach to the hip was performed. The short external rotators and capsule were taken down in an L-shaped capsulotomy. The tissue was tagged for later repair using number 2 high strength suture. The femoral neck was measured and taken in situ. The femoral head was removed. The acetabulum was carefully exposed. The inferior capsule was released. The labrum was resected. The acetabulum was sequentially reamed to the intended cup size. The cup was impacted into position with excellent press-fit. Typical anatomic landmarks, including the bony contact points as well as the inferior transverse acetabular ligament were used to confirm cup positioning with preoperative templating. Attention was turned to the femur, which was carefully exposed. The hip was reamed and then broached sequentially. Excellent press-fit was obtained with the broach. The hip was trialed. Measurements were utilized, including the lesser trochanter as well as the center of the femoral head and the tip of the trochanter, and excellent assessment of the offset and leg lengths were confirmed. The real component was impacted into position. Trialing confirmed appropriate leg length and offset with soft tissue balancing as well apparent feel of the leg, both at the knee and the heel. Soft tissues were assessed using the the iliotibial band. Reduction of the posterior capsule and external rotators were also used as a secondary assessment. The hip was copiously irrigated with pulsatile lavage periodically throughout the procedure. The real components were then assembled and reduced. The hip was stable throughout typical maneuvers, including extension, external rotation to 70 degrees, the position of sleep as well as flexion to 90 degrees with internal rotation past 35 degrees. The shake test confirmed stability without impingement. Osteophytes were removed as necessary. The short external rotators and capsule were repaired back to the posterior trochanter through drill holes. The deep fascia was repaired with running number 2 barbed suture, followed by 2-0 Stratafix suture and 3-0 Stratafix suture in the dermis. Steri-Strips were placed on the skin, followed by a sterile occlusive dressing. There were no complications. Meticulous hemostasis was maintained with the AquaMantys device. The patient was brought to the recovery room in stable condition. There were no complications. Physician ortho assistant, Annika Chowdary PA-C, required for surgery; including patient positioning, draping, tissue retraction, maintaining instrument position, hip dislocation/ relocation, wound closure, and dressing placement. Implants The Accolade II hip stem, 127 degree size 6 , was utilized with excellent press-fit. The 58 mm Trident II acetabular component was impacted with excellent press-fit stability. 10 degree elevated polyethylene liner the +2.5, 36 mm Biolox ceramic femoral head was utilized. Estimated Blood Loss 400 Drains No Packing No Pathology None s
[2023-11-29] MEDS: fentaNYL CITRATE INJ (*CRX) 100 MCG/2 ML VIAL 25 MCG IV PUSH ×7 (15:11→15:50)
--- NOTE | 2023-11-29 16:21 | ADMGEN ---
This patient, Blanco Skaggs, was admitted to [address] [place] [address] Room 306-02. Patient/family oriented to hospital policies and general routines including ID bracelet, bed and alarms, visiting hours, pain management, procedures, bathroom and other care routines, personal items, smoking policy, room service/diet, and visiting hours. Information on how to activate the Rapid Response Team has been discussed. Patient/Family are encouraged to report perceived risks to care and to ask questions if they do not understand what they are told or what they should do.
[2023-11-29] MEDS: ASPIRIN 81 MG ENTERIC TABLET PO (16:38)
[2023-11-29] MEDS: SODIUM CHLORIDE 0.9% IV 1,000 ML 125 ML IV CONT (16:38)
[2023-11-29] MEDS: SENNA/DOCUSATE SODIUM TABLET 2 TAB PO (16:38)
--- NOTE | 2023-11-29 17:43 | PCRCNOTE ---
Pt states he does not wear a CPAP machine and has never used one.. Pt states he uses an oral device for his sleep apnea
[2023-11-29] MEDS: ONDANSETRON INJ 4 MG/2 ML VIAL IV PUSH (21:19)
[2023-11-29] MEDS: FAMOTIDINE 20 MG TABLET PO (21:19)
[2023-11-29] MEDS: oxyCODONE HCL (*CRX) 5 MG TAB IR PO (21:19)
[2023-11-30 00:36] VITALS: BP 143/87; PULSE 80; RESP 18; TEMP 37.5; O2SAT 90
[2023-11-30] MEDS: ceFAZolin 2 GM/D5W 50 ML 2 GM/50 ML BAG IVPB ×2 (02:21→09:42)
[2023-11-30] MEDS: oxyCODONE HCL (*CRX) 5 MG TAB IR 10 MG PO ×2 (02:35→09:38)
[2023-11-30] MEDS: ACETAMINOPHEN 500 MG TABLET 1000 MG PO ×3 (02:36→13:06)
[2023-11-30 05:51] VITALS: BP 130/85; PULSE 99; RESP 18; TEMP 37.1; O2SAT 95
[2023-11-30 07:00] LABS: Basophils Percent Auto 0.4 % (0.2-1.2); Eosinophils Percent Auto 0.1 % (0-4.4); Hematocrit 34.5 % (42.0-52.0); Hemoglobin 11.4 g/dL (14.0-18.0); Immature Granulocyte Absolute 0.03 K/mm3 (0.00-0.031); Immature Granulocyte Percent A 0.4 % (0-0.5); Immature Platelet Fraction Pct 19.9 % (0.9-11.2); Lymphocytes Absolute Auto 1.77 K/mm3 (0.9-3.2); Lymphocytes Percent Auto 23.5 % (18.3-44.2); Mean Corpuscular Hemoglobin 34.4 pg (26-34); Mean Corpuscular Volume 104.2 fl (80-100); Monocytes Absolute Auto 0.8 K/mm3 (0.1-0.6); Monocytes Percent Auto 10.5 % (2.6-8.5); Neutrophils Absolute Auto 4.9 K/mm3 (1.3-6.7); Neutrophils Percent Auto 65.1 % (45.5-73.1); Platelet Count Result 77 k/mm3 (150-375); Red Blood Count 3.31 M/mm3 (4.6-6.20); White Blood Count 7.5 K/mm3 (4.5-10.0)
[2023-11-30 07:07] LABS: Anion Gap 3 mmol/L (4-12); Blood Urea Nitrogen 9 mg/dL (9-20); Calcium 8.1 mg/dL (8.4-10.2); Carbon Dioxide 27 mmol/L (22-30); Chloride 105 mmol/L (98-107); Estimated CRCL calculation 97 ml/min; Estimated Glomerular Filt Rate > 60; Glucose 107 mg/dL (65-110); Potassium 3.9 mmol/L (3.4-5.0); Sodium 135 mmol/L (137-145)
[2023-11-30 08:05] VITALS: BP 134/83; PULSE 88; RESP 16; TEMP 36.4; O2SAT 95
--- NOTE | 2023-11-30 08:57 | WPDCN ---
Assessment and Plan Assessment and plan (1) Status post total hip replacement, left: Code(s): Z96.642 - Presence of left artificial hip joint Status: Acute Assessment and Plan: 11/30/2023: Postop day 1 from a left total hip arthroplasty Continue with pain control PT and OT ordered Continue cefazolin Ortho following Continue with incentive spirometer q.2 hours awake Weight-bearing as tolerated Plan is for discharge today with orthopedic services We will go ahead and sign off today. (2) Obesity (BMI 30-39.9): Code(s): E66.9 - Obesity, unspecified Status: Acute Assessment and Plan: 11/30/2023: BMI 33.1, 110.6 kg (3) Deep vein thrombosis (DVT) of left lower extremity: Qualifiers: Affected thrombotic vein of extremity: unspecified vein of extremity Chronicity: acute Qualified Code(s): I82.402 - Acute embolism and thrombosis of unspecified deep veins of left lower extremity Code(s): I82.402 - Acute embolism and thrombosis of unspecified deep veins of left lower extremity Status: Acute Assessment and Plan: 11/30/2023: Patient was found to have a chronic nonocclusive DVT involving the left popliteal vein on 06/30/2023 Currently on Xarelto, however this is on hold due to surgical procedure Ortho plans to restart Xarelto starting tomorrow and bridged with 81 mg aspirin. (4) ADD (attention deficit disorder) without hyperactivity: Code(s): F98.8 - Other specified behavioral and emotional disorders with onset usually occurring in childhood and adolescence Status: Acute Assessment and Plan: 11/30/2023: Continue Adderall 20 mg b.i.d. (5) Chronic gout: Qualifiers: Gout etiology: unspecified cause Gout site: unspecified site Presence of tophus: without tophus Qualified Code(s): M1A.9XX0 - Chronic gout, unspecified, without tophus (tophi) Code(s): M1A.9XX0 - Chronic gout, unspecified, without tophus (tophi) Status: Acute Assessment and Plan: 11/30/2023: Continue allopurinol and Lyrica HPI Data of Consult Date/Time: 11/30/23 08:57 Requesting Physician: Dain Call MD Primary Care Provider: Raina Haque MD Consult Narrative Narrative: Blanco Skaggs is a 63 year old male presented to the hospital on 11/29/2023 for elective left total hip arthroplasty. Patient is currently postop day 1. Postop x-ray showing expected postsurgical changes with no evidence of procedure hardware related complication. Labs today show a hemoglobin of 11.4, sodium 135, calcium 8.1, otherwise unremarkable. Patient will be working with physical therapy and occupational therapy today. Patient denies any fever, chills, nausea, vomiting, diarrhea, abdominal pain, chest pain, or shortness of breath. Patient rates his pain moderate in intensity especially with ambulation. He did work with PT and OT. We were consulted for medical management while inpatient. Plan is for patient to discharge today. Review of Systems Review of Systems: All systems reviewed & are unremarkable except as noted in HPI and below Constitutional: Constitutional: Reports as per HPI and Reports no additional constitutional complaints Eyes: Eyes: Reports as per HPI and Reports no additional eye complaints ENT: Reports system reviewed and no additional complaints, except as documented and Reports as per HPI Cardiovascular: Cardiovascular: Reports as per HPI and Reports no additional cardiovascular complaints Respiratory: Respiratory: Reports as per HPI and Reports no additional respiratory complaints Gastrointestinal: Gastrointestinal: Reports as per HPI and Reports no additional gastrointestinal complaints Genitourinary: Genitourinary: Reports no additional male genitourinary complaints and Reports as per HPI Musculoskeletal: Musculoskeletal: Reports no additional musculoskeletal complaints and Reports as per HPI Inte
[2023-11-30] MEDS: ASPIRIN 81 MG ENTERIC TABLET PO (09:35)
[2023-11-30] MEDS: FAMOTIDINE 20 MG TABLET PO (09:35)
[2023-11-30] MEDS: polyethylene glycoL 3350 17 GM POWD.PACK PO (09:35)
[2023-11-30] MEDS: allopurinoL 300 MG TABLET PO (09:35)
[2023-11-30] MEDS: SENNA/DOCUSATE SODIUM TABLET 2 TAB PO (09:35)
--- NOTE | 2023-11-30 09:35 | PM.DS ---
DS: Admitting Diagnosis Discharge Date 11/30/23 Admitting Diagnosis Hip arthritis. DS: Discharge Diagnosis Discharge Diagnosis (1) Status post total hip replacement, left: Code(s): Z96.642 - Presence of left artificial hip joint Status: Acute Assessment and Plan: Postop day 1: Total hip arthroplasty. Patient tolerated procedure well. No complications. Pain manageable with pain medication. No numbness or tingling. We had a lengthy discussion regarding postoperative wound care, limitations, expectations, and exercises. Patient shows good understanding. Patient has had initial physical therapy and is tolerating it well. DVT prophylaxis: Xarelto will start 48 hours after surgery. Bridge with ASA 81 mg. Pain medication: Percocet. Patient has followup appointment with Dr. Call in 3 weeks DS: Summary Hospital Course Reason for hospitalization: Total hip arthroplasty Hospital Course: Patient tolerated procedure well. Has had initial PT/OT. Status at Discharge Functional status at discharge: uses cane/walker Overall status at discharge: patient is progressing back to baseline Time Spent with Patient Time attestation: Total time spent providing and/or coordinating discharge services: Exam Narrative: Normal weight 63 y/o Male. Resting comfortably in bed. Wearing compression socks bilaterally. Dressing dry and intact with no drainage. Mild swelling. No ecchymosis. No erythema. No hematoma. Range of motion limited due to pain. Calf nontender. Thigh nontender. Neurologic status intact. No varicosities. Distal pulses palpable. DS: Data Data Completed and Pending Labs on day of discharge: Labs from last 24 hours 11/30/23 11/29/23 06:07 11:10 WBC 7.5 RBC 3.31 L Hgb 11.4 L D Hct 34.5 L MCV 104.2 H MCH 34.4 H MCHC 33.0 RDW 12.0 Plt Count 77 L MPV 13.0 H Immature Gran % (Auto) 0.4 Neut % (Auto) 65.1 Lymph % (Auto) 23.5 [place] % (Auto) 10.5 H Eos % (Auto) 0.1 Baso % (Auto) 0.4 Lymph # (Auto) 1.77 [place] # (Auto) 0.8 H Eos # (Auto) 0.0 Baso # (Auto) 0.0 Abs Immat Gran (auto) 0.03 Absolute Neuts (auto) 4.9 Absolute Nucleated RBC 0.000 Nucleated RBC % 0.0 % Immature Plt Fraction 19.9 H Sodium 135 L Potassium 3.9 Chloride 105 Carbon Dioxide 27 Anion Gap 3 L BUN 9 D Creatinine 0.90 Estim Creat Clear Calc 97 Estimated GFR > 60 Glucose 107 Calcium 8.1 L Blood Type O Positive Antibody Screen Negative Discharge Plan Discharge Patient Disposition: Home, Self-Care Discharge Instructions: See green instruction sheets Stand Alone Forms: General Discharge Instructions Follow-up/Referrals: Annika Chowdary PA [Physician Prop Setter] - Discharge Medications: New aspirin 81 mg tablet,delayed release (DR/EC) 81 mg PO BID 2 Days Qty: 4 0RF oxycodone-acetaminophen 5-325 mg tablet 1 - 2 tablet PO Q4-6H MDD 6 PRN (Reason: pain) Qty: 30 0RF Continued dextroamphetamine-amphetamine [Adderall] 20 mg tablet 20 mg PO BID Qty: 60 0RF pregabalin [Lyrica] 150 mg capsule 150 mg PO BID Qty: 180 1RF indomethacin 25 mg capsule 25 mg PO PRN PRN (Reason: gout flareup) multivitamin Tablet 1 tablet PO DAILY omega-3 fatty acids Capsule 1,000 mg PO DAILY turmeric 400 mg Capsule 400 mg PO DAILY acetaminophen [Tylenol Arthritis Pain] 650 mg Tablet Extended Release 1,300 mg PO PRN PRN (Reason: Pain) colchicine 0.6 mg tablet 0.6 mg PO .COMPLEX Qty: 10 0RF Rx Instructions: 0.6 mg PO take 2 tabs by mouth then 1 tab 1 hour later for gout attack, do not repeat in 3 days; allopurinol 300 mg tablet 300 mg PO DAILY Qty: 90 1RF Held Xarelto 20 mg tablet 20 mg PO DAILY Qty: 90 1RF Hold Instructions: Resume on 12/01/23. Hold for 48 hours after surgery. Rx Instructions: must administer with evening meal
[2023-11-30] MEDS: MULTIVITAMINS THERAPEUTIC TAB (*BKC) 1 TABLET PO (09:38)
[2023-11-30] MEDS: PREGABALIN (*CRX) 75 MG CAPSULE 150 MG PO (09:38)
[2023-11-30 12:00] VITALS: BP 128/78; PULSE 103; RESP 18; TEMP 36.8; O2SAT 94
--- NOTE | 2023-11-30 12:21 | P.PNAN_ITS ---
Anes - Prog Note Post-Op Date/Time: 11/30/23 12:21 Cardiovascular status: normal Respiratory status: normal Airway patency: baseline Mental status: baseline Post-Op hydration status: normal Vital Signs: Last Vital Signs Temp 36.4 C 11/30/23 08:05 Pulse 88 11/30/23 08:05 Resp 16 11/30/23 08:05 BP 134/83 11/30/23 08:05 Pulse Ox 95 11/30/23 08:05 O2 Del Method Room Air 11/30/23 08:03 O2 Flow Rate 6 11/29/23 15:10 Pain Score (VAS): 10/23 I/O: Intake & Output 11/29/23 11/30/23 11/30/23 23:59 07:59 15:59 Intake Total 750 50 240 Balance 750 50 240 Laboratory Tests 11/30/23 06:07 11/30/23 06:07 11/30/23 06:07 WBC 7.5 RBC 3.31 L Hgb 11.4 L D Hct 34.5 L MCV 104.2 H MCH 34.4 H MCHC 33.0 RDW 12.0 Plt Count 77 L MPV 13.0 H Immature Gran % (Auto) 0.4 Neut % (Auto) 65.1 Lymph % (Auto) 23.5 [place] % (Auto) 10.5 H Eos % (Auto) 0.1 Baso % (Auto) 0.4 Lymph # (Auto) 1.77 [place] # (Auto) 0.8 H Eos # (Auto) 0.0 Baso # (Auto) 0.0 Abs Immat Gran (auto) 0.03 Absolute Neuts (auto) 4.9 Absolute Nucleated RBC 0.000 Nucleated RBC % 0.0 % Immature Plt Fraction 19.9 H Sodium 135 L Potassium 3.9 Chloride 105 Carbon Dioxide 27 Anion Gap 3 L BUN 9 D Creatinine 0.90 Estim Creat Clear Calc 97 Estimated GFR > 60 Glucose 107 Calcium 8.1 L Post-procedural complaints: nausea Patient Feedback: Patient satisfied with anesthetic care.
[2023-11-30 13:00] VITALS: BP 125/62; PULSE 83; RESP 16; TEMP 36.7; O2SAT 98
== END 2023-11-30 16:00 | disposition home or self-care (01) ==
LOC: ANHSURGERY 12:11 → ANH3MEDSUR 16:14
PROVIDERS: Physician Assistant Surgical; PCP Family Medicine; Visit Provider Orthopaedic Surgery
PROC: (CPT 27130; principal; 2023-11-29 12:00)
DX: M16.12 Unilateral primary osteoarthritis, left hip (principal); I82.402 Acute embolism and thrombosis of unspecified deep veins of left lower extremity; F98.8 Other specified behavioral and emotional disorders with onset usually occurring in childhood and adolescence; G47.33 Obstructive sleep apnea (adult) (pediatric); G62.9 Polyneuropathy, unspecified; M1A.9XX0 Chronic gout, unspecified, without tophus (tophi); E66.9 Obesity, unspecified; Z68.33 Body mass index [BMI] 33.0-33.9, adult; Z79.01 Long term (current) use of anticoagulants; Z79.82 Long term (current) use of aspirin
CPT/HCPCS: 27130; 36415; 73502; 80048; 80307; 82040; 82565; 82947; 83036; 85025; 85055; 86850; 86900; 86901; 87641; 97110; 97161; 97165; 97530; 97535; A9270; C1713; C1776; J0171; J0690; J1100; J1170; J1885; J2250; J2270; J2405; J2704; J2765; J2795; J3010; J7030; J7120

== ENCOUNTER 2024-01-15 14:44 | Outpatient (CLI) | payer OTHER, SELFPAY ==
--- NOTE | ~2024-01-15 | XR_ITS ---
EXAMINATION: XR hip LT 2V w AP pelvis DATE: 01/15/2024 15:01 INDICATION: Aftercare following joint replacement surgery. TECHNIQUE: An anteroposterior view of the pelvis and 2 views of left hip were obtained. COMPARISON: Left hip radiographs 12/20/2023 FINDINGS: There is a total left hip arthroplasty in near-anatomic alignment. No fracture. No peripros thetic lucency to suggest loosening or infection. There is moderate right hip osteoarthritis. There a re changes of ventral hernia repair. IMPRESSION: 1. Total left hip arthroplasty in near-anatomic alignment. 2. Moderate right hip osteoarthritis. Reviewed, dictated and finalized at location E.
== END 2024-01-15 14:45 | disposition home or self-care (01) ==
PROVIDERS: PCP Family Medicine; Visit Provider Orthopaedic Surgery
DX: Z47.1 Aftercare following joint replacement surgery (principal); Z96.642 Presence of left artificial hip joint; M16.11 Unilateral primary osteoarthritis, right hip
CPT/HCPCS: 73502

== ENCOUNTER 2024-01-24 12:31 | Outpatient (RCR) | payer OTHER, SELFPAY ==
--- NOTE | 2024-01-24 13:24 | OPREHPOC ---
Outpatient Therapy Plan of Care This is a Multidisciplinary Plan of Care that may contain components documented by all disciplines (PT, OT, and ST.) PT Problem 1 PT Problem #1 Knowledge Deficit PT Goal 1 Goal 1. Patient will perform independent HEP Target Visit 4 PT Problem 2 PT Problem #2 Impaired Strength PT Goal 1 Goal 1. Left hip strength 5/5 in all planes in order to do typical yard work etc Target Visit 10 PT Problem 3 PT Problem #3 Impaired Gait PT Goal 1 Goal 1. Patient will demonstrate no major gait deviations on 2 minute walk test Target Visit 10 PT Problem 4 PT Problem #4 Impaired Functional ADLs PT Goal 1 Goal 1. No pain with 5 time sit to stand test to decrease pain with sit to stand throughout the day Target Visit 10 PT Problem 5 PT Problem #5 Impaired Balance PT Goal 1 Goal 1. Less than 12 seconds on 5 time sit to stand test Target Visit 10
--- NOTE | 2024-01-24 13:25 | PTOPEVAL1 ---
Assessment and note entered by Dari Tolbert DPT Evaluation Information Assessment Status Evaluation Subjective Information Pt had L posterior hip replacement on 11/29/23. No home health therapy. 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 Highest pain 5/10 and lowest 4/10. Pain with sit to stands, difficulty getting dressed or bending over to pick something up. Pt has 3 stairs outside of his house, none inside. Pt is doing his normal cooking, light cleaning and has not done heavy cleaning activities or yard work. Pt previously was active and independent at home and work. Patient goal: more flexibility, get back to normal Returns to [place] in February. Reported Pain Level Pain Score 4: Self Report Assessment PT Clinical Summary The patient is presenting to skilled therapy s/p L LAURA. He presents with decreased left hip strength in all planes as well as gait and balance impairments that are contributing to his pain and difficulty with typical activities including dressing, yard work, and bending over. He will benefit from therapy to address his impairments in order to improve strength, reduce pain, and return to prior level of function. Plan of Care Interventions Electrical Stimulation,Gait Training,Hot Pack/Cold Pack,Manual Therapy,Neuro Re-education,Patient/ Caregiver Education,Therapeutic Activities, Therapeutic Exercise PT Services Indicated Yes Treatment Frequency and 2 times a week for 10 visits Duration These treatments will address the objective and functional deficits as defined above. The patient will be advanced safely and appropriately in order for the patient to progress towards his/her prior level of function. Additional exercises will be introduced and as well as a comprehensive home exercise program upon discharge, if needed, ?to ensure carryover of functional gains achieved in the clinic. This treatment plan has been reviewed and agreement upon by the patient.
--- NOTE | 2024-01-26 13:12 | PCPTNOTE ---
Patient called to cancel appointment on 01/26/24.
--- NOTE | 2024-02-16 08:58 | PTOPDC ---
Assessment and note entered by Dari Tolbert, DPT Evaluation Information Assessment Status Discharge - Pt Not Present Subjective Information - Assessment PT Clinical Summary The patient has not attended therapy since his initial evaluation. Left message for patient on , 02/08, and 02/13. Patient will be discharged at this time. Plan of Care PT Services Indicated No
== END 2024-02-16 09:15 | disposition home or self-care (01) ==
LOC: ANHGOSHPT 12:31
PROVIDERS: PCP Family Medicine; Visit Provider Physician Assistant Surgical
DX: Z47.1 Aftercare following joint replacement surgery (principal)
CPT/HCPCS: 97110; 97161; 97530

== ENCOUNTER 2024-01-26 15:31 | Outpatient (CLI) | payer OTHER, SELFPAY ==
--- NOTE | ~2024-01-26 | US_ITS ---
EXAMINATION:US venous doppler LE LT INDICATION:Chronic DVT TECHNIQUE: Multiple grayscale, color flow and Doppler images of the left lower extremity deep venous systems were obtained and reviewed. COMPARISON:06/30/2023 FINDINGS: There is chronic deep venous thrombosis of the left popliteal vein. The common femoral, sup erficial femoral veins demonstrate normal respiratory variation, augmentation and compressibility. C olor flow is also seen within the posterior tibial, peroneal, greater saphenous and profunda veins. IMPRESSION: 1: Chronic deep venous thrombosis of the left popliteal vein. Reviewed, dictated and finalized at location B.
== END 2024-01-26 15:32 | disposition home or self-care (01) ==
LOC: ANHIMG 15:32
PROVIDERS: PCP Family Medicine; Visit Provider Internal Medicine Hematology & Oncology
DX: I82.4Y2 Acute embolism and thrombosis of unspecified deep veins of left proximal lower extremity (principal)
CPT/HCPCS: 93971

== ENCOUNTER 2025-08-13 17:25 | Emergency (ER) | payer BC, SELFPAY ==
--- NOTE | ~2025-08-13 | XR_ITS ---
EXAMINATION: XR knee RT 3V DATE: 08/13/2025 18:12 INDICATION: Fall on ice 4 weeks prior TECHNIQUE: Anteroposterior, sunrise and crosstable lateral views of the right knee were obtained COMPARISON: None. FINDINGS: Alignment is normal. No fracture. Joint spaces appear normal on nonweightbearing imaging. No joint effusion/layering lipohemarthrosis. Prominent infrapatellar and pretibial soft tissue swelling. IMPRESSION: 1. No right knee joint effusion or acute osseous abnormality. Reviewed, dictated and finalized at location A. WABLE ENERGY ENGINEER
[2025-08-13 17:25] VITALS: BP 165/102; PULSE 97; RESP 18; TEMP 36.3; O2SAT 98
--- NOTE | 2025-08-13 17:50 | ED.EXTPRO ---
HPI - Extremity Problem General Chief complaint: Extremity Problem,Nontraumatic Stated complaint: leg swelling Source: patient Mode of arrival: ambulatory Limitations: no limitations History of Present Illness HPI Narrative: 64 years old white male had a fall on ice 1 month ago landed on the right knee anteriorly, causing some abrasion, did not see a doctor at that time, 2-3 weeks later the knee started getting warm, pain with standing and walking. Redness spread down to the front of the right lower extremity. Patient was seen at urgent care today and was advised to go to [facility] for venous Doppler, patient came to us instead. History of left deep vein thrombosis since 2020 patient ran out of [employer] 3-4 weeks ago because can not afford it. Patient denies any fever, chills, nausea, vomiting, chest pain, shortness of breath, back pain. No history of diabetes Related Data Home Medications ?Medication ?Instructions ?Recorded ?Confirmed ?Last Taken ?Type multivitamin 1 tablet PO DAILY 11/01/23 05/01/25 11/25/23 History omega-3 fatty acids 1,000 mg PO DAILY 11/01/23 05/01/25 11/25/23 History turmeric 400 mg capsule 400 mg PO DAILY 11/01/23 05/01/25 11/25/23 History Allergies Allergy/AdvReac Type Severity Reaction Status Date / Time No Known Allergies Allergy Unknown Verified 08/13/25 17:52 Review of Systems Review of Systems: All systems reviewed & are unremarkable except as noted in HPI and below PMFSH Past Medical History Medical History Dermatitis Rash Erectile disorder Chronic left hip pain Perforated nasal septum GRACE (obstructive sleep apnea) Elevated LFTs History of COVID-19 (~08/2021) Deep vein thrombosis (DVT) of left lower extremity ADD (attention deficit disorder) without hyperactivity Peripheral neuropathy Chronic gout Surgical History Surgical History Status post total hip replacement, left (~11/29/23) History of tonsillectomy (~1965) Hx of inguinal hernia surgery (~2004) Left Family History Family History Father Family history of type 2 diabetes mellitus Other Hypertension Social History Social History Social History: Single. Lives alone Caffeine-sometimes Smoking status: Never smoker Second hand tobacco smoke exposure: No Additional smoking assessment comments: DENIES ANY FORM OF TOBACCO Alcohol intake: current Drinks per week: 12 Alcohol use details: occasionally-beer Substance use: never Substance use type: does not use Lack of Transportation: No Lack of Food: Never True Current Housing: I Have Housing Concerned About Future Housing: No Difficulty Paying Gas/Electric Bills: No Difficulty Paying for Meds: No Currently Unemployed: No Education: Master's Degree or Higher Difficulty w/ Childcare or Family Care: No Living arrangements: alone Occupation/Education: 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 Gender identity (if verbalized by the patient): Male Sexual Orientation (if Verbalized by the Patient): Straight or Heterosexual Spiritual care concerns: No Agree to blood products: Yes Exam Narrative: General appearance: Well-developed, well-nourished Skin: Normal color Head: Normocephalic, nontraumatic Eyes: Clear conjunctiva ENT: Oropharynx normal, ears normal, nose normal Neck: Supple, nontender Chest and respiratory: Airway patent, no respiratory distress, no accessory muscle use Heart: Regular rate/rhythm Abdomen: Soft, nontender, no organomegaly, quiet bowel sounds Vascular: Normal peripheral pulses, normal capillary refill. Musculoskeletal: Right lower leg examination showed them scab at the right knee anteriorly surrounded by erythema spreading down to the front of the right lower extremity, diffuse swelling of the right lower leg, diffusely tender Neurologic: Alert and oriented ?3, HOME SECURITY PROFESSIONAL is normal as tested, no gross motor deficit Course Vital Signs Vital signs: Vital Signs Temperature 36.3 C L 08/13/25 17:25 Pulse Rate 97 08/13/25 17:25 Respiratory Rate 18 08/13/25 17:25 Blood Pressure 165/102 H 08/13/25 17:25 Pulse Oximetry 98 08/13/25 17:25 Oxygen Delivery Room Air 08/13/25 17:25 Temperature 36.3 C L 08/13/25 17:25 Pulse Rate 86 08/13/25 18:23 Respiratory Rate 20 08/13/25 18:23 Blood Pressure 148/95 H 08/13/25 18:23 Pulse Oximetry 98 08/13/25 18:23 Oxygen Delivery Room Air 08/13/25 18:23 MDM MDM Narrative Medical decision making narrative: Differential diagnosis include cellulitis, deep vein thrombosis. In the ED patient received clindamycin 450 mg p.o., and Xarelto 15 mg p.o. Patient is scheduled for venous Doppler right lower extremity at 7:00 a.m. tomorrow. Discharged on clindamycin and Xarelto. Differential Diagnosis Differential Diagnosis: As above Imaging Data Radiologist's impression: ITS Impressions Knee X-Ray 08/13/25 18:16 IMPRESSION: 1. No right knee joint effusion or acute osseous abnormality. Impressions Knee X-Ray 08/13/25 18:16 IMPRESSION: 1. No right knee joint effusion or acute osseous abnormality. Critical Care Time Critical Care Time Critical Care Time: No Discharge Plan Discharge Clinical Impression: Cellulitis, History of DVT of lower extremity, Contusion of knee Patient Disposition: Home Condition: Stable Instructions: Antibiotic Form, Cellulitis (ED), Knee Pain (ED), Deep Vein Thrombosis Prevention (ED) Additional Instructions: Return if symptoms are worsening , call your family physician for appointment, take Tylenol, ibuprofen as as needed for aches and pain, continue home medications. Keep right leg elevated You are scheduled for venous Doppler of the right lower extremity tomorrow at 7:00 a.m. in our facility to rule out the possibility of deep vein thrombosis. Patient Language: Grenadian Prescriptions: New clindamycin HCl [Cleocin HCl] 150 mg capsule 450 mg PO Q8H 10 Days Qty: 90 0RF Xarelto DVT-PE Treat 30d Start 15 mg (42)- 20 mg (9) tablets,dose pack 1 ea PO BID Qty: 51 0RF Rx Instructions: orally twice a day; No Action prednisone 20 mg tablet 20 mg PO BID PRN (Reason: gout flare up) Qty: 10 0RF indomethacin 50 mg capsule 50 mg PO TID PRN (Reason: gout flare up) Qty: 30 0RF Rx Instructions: administer with food or milk multivitamin Tablet 1 tablet PO DAILY omega-3 fatty acids Capsule 1,000 mg PO DAILY turmeric 400 mg Capsule 400 mg PO DAILY pregabalin [Lyrica] 150 mg capsule 150 mg PO BID Qty: 180 1RF colchicine 0.6 mg tablet 0.6 mg PO .COMPLEX Qty: 10 0RF Rx Instructions: 0.6 mg PO take 2 tabs by mouth then 1 tab 1 hour later for gout attack, do not repeat in 3 days; Xarelto 20 mg tablet 20 mg PO DAILY Qty: 90 1RF Rx Instructions: must administer with evening meal allopurinol 300 mg tablet 300 mg PO DAILY Qty: 90 1RF dextroamphetamine-amphetamine [Adderall] 20 mg tablet 20 mg PO BID Qty: 60 0RF sildenafil [Viagra] 100 mg tablet 100 mg PO DAILY PRN (Reason: sexual activity) Qty: 30 0RF Rx Instructions: administer 30 minutes to 4 hours before activity Follow-up/Referrals: UNKNOWN,DOCTOR [Non-Staff] Stand Alone Forms: Work/School Release IP
--- OUTSIDE RECORDS SUMMARY | 2025-08-13 18:02 | XMS_ITS | Clinical Summary ---
Author Organization [facility] Address [address] [place] [id number] Care Team Providers Care Plush Cutter Name Role Phone Unavailable Primary Care Provider Unavailabl e Immunizations Immunization Administration Dates Next Due MODERNA COVID-19 (12+) MRNA, LNP-S, PF, 100 MCG/ 0.5 ML DOSE 01/01/2021,12/04/2020 Social History Tobacco Use Types Packs/Day Years Used Date Smoking Tobacco: Never Assessed Sex and Gender Information Value Date Recorded Sex Assigned at Not on file Legal Sex Male 3:04 PM CDT Gender Identity Not on file Sexual Orientation Not on file Plan of Treatment Health Maintenance Due Date Last Done Comments Colorectal Cancer Screening Colonoscopy (10 Years) 1962 Annual Physical 1965 Hepatitis C 1980 DTaP, Tdap and Td Vaccines ( 1 - Tdap) 1981 Pneumococcal Vaccine: 50+ Years (1 of 1 - PCV) 2012 Zoster Vaccines (1 of 2) 2012 COVID-19 Vaccine (3 - 2024-2 6 season) 2025 01/01/2021, 12/04/2020 Influenza Adult (#1) 2025 RSV Immunization or 60+ Years (1 - 1-dose 75+ series) 2037 Hepatitis A Vaccines Aged Out No long er eligible based on patient's age to complete this topic Meningococcal B Vaccine Aged Out No l onger eligible based on patient's age to complete this topic Meningococcal Vaccine Aged Out No adam zeyad eligible based on patient's age to complete this topic RSV Immunizations Under 20 Months Aged Out No longer eligible b ased on patient's age to complete this topic Insurance [facility]
--- OUTSIDE RECORDS SUMMARY | 2025-08-13 18:03 | XMS_ITS | Clinical Summary ---
Author Organization [facility] Address [address] [place] [address] Care Team Providers Care Certified Addiction Counselor Name Role Phone Raina Haque MD Primary Care Provider Allergies No known active allergies Medications allopurinoL (ZYLOPRIM) 300 mg tablet Take 300 mg by mouth daily. 08/04/2021 Active pregabalin (LYRICA) 150 mg Capsule 10/21/2021 Active Xarelto 20 mg Tablet Take 20 mg by mouth daily. 09/26/2021 Active dextroamphetami ne-amphetamine (ADDERALL) 20 mg tablet 10/23/2021 Active indomethacin (INDOCIN) 25 mg capsule TAKE 1 CAPSULE BY MOUTH TWICE DAILY NEEDED FOR GOUT FLAREUP 10/21/2021 Active Active Problems Problem Noted Date Diagnosed Date Secondary hypercoagulable state 10/23/2021 Encounters Date Type Department Care Team Description 08/07/2025 External Device Data ST[facility] ABSTRACTION Provider, Abstract 06/06/2025 External Device Data [facility] ABSTRACTION Provider, Abstract 05/29/2025 External Device Data [facility] ABSTRACTION Provider, Abstract from Last 3 Months Family History Relation Name Status Comments Daughter 1 Alive Daughter 2 Alive Social History Tobacco Use Types Packs/Day Years Used Date Smoking Tobacco: Never Smokeless Tobacco: Never Tobacco Cessation:Counseling Given: Not Answered Alcohol Use Standard Drinks/Week Comments Yes 0 (1 standard drink = 0.6 oz pur e alcohol) occasional Sex and Gender Information Value Date Recorded Sex Assigned at Not on file 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 Gender Identity Not on file Sexual Orientation Not on file Last Filed Vital Signs Vital Sign Reading Time Taken Comments Blood Pressure 129/77 02/01/2025 2:45 PM CDT Pulse 96 02/01/2025 2:45 PM CDT Temperature 36.9 C (98.5 F) 02/01/2025 2:45 PM CDT Respiratory Rate 15 02/01/2025 2:45 PM CDT Oxygen Saturation 95% 02/01/2025 2:45 PM CDT Inhaled Oxygen Concentration - - Weight 111.2 kg (245 lb 3.2 oz) 02/01/2025 2:45 PM CDT Height 182.9 cm (6') 05/27/2022 10:20 AM CDT Body Mass Index 33.26 05/27/2022 10:20 AM CDT Plan of Treatment Upcoming Encounters Date Type Department Care Team (Late st Contact Info) Description 02/01/2026 8:45 AM CDT Office Visit [facility] Oncology and Hematology [facility] [address] [facility] [address] [place] [address] Vaughn Pelletier MD [address] [facility] [address] [place] [address] Health Maintenance Due Date Last Done Comments Pre-Diabetes and Diabetes Screening 1962 DTAP/TDAP/TD VACCINES (1 - Tdap) 1981 COLORECTAL SCREENING 11/07/2007 Colorectal Cancer Screening 11/07/2007 FIT-DNA Q 3 years 11/07/2007 FIT/FOBT Q 1 year 11/07/2007 Flex Sig/CT Colonography Q 5 years 11/07/2007 ZOSTER VACCINE (1 of 2) 2012 INFLUENZA VACCINE (#1) 2025 COVID-19 Vaccine (3 - 2024- season) 2025, 12/04/2020 RSV VACCINE (60+ or ) (1 - 1-dose 75+ series) 2037 Care Teams Certified Addiction Counselor Relationship Specialty Start Date End Date Raina Haque MD [address] [place] [address] PCP - General Family Practice 10/23/21
--- OUTSIDE RECORDS SUMMARY | 2025-08-13 18:03 | XMS_ITS | Clinical Summary ---
Author Organization [facility] [employer] Address [address] [place] [address] Care Team Providers Care Director Religious Education Name Role Phone Unavailable Primary Care Provider Unavailabl e Source Comments [facility],non-owned Affiliates and Associated Physician Practices is amultiple site organization consisting of ambulatory clinics and hospital sitesin [place], [place], [place] and [place]. This disclosure is being madepursuant to the Care Everywhere program and may not contain all information available regarding this patient. 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 Gender Identity Not on file Sexual Orientation Not on file Plan of Treatment Health Maintenance Due Date Last Done Comments COLOGUARD (AGES 45-75) - COL ON CA SCREENING 1962 COLON MONITORING 1962 COLONOSCOPY - COLON CA SCREENING 1962 CT COLONOGRAPHY - COLON CA SCREENING 1962 Colorectal Cancer Screening 1962 FIT - COLON CA SCREENING 1962 FLEX SIG - COLON CA SCREENING 1962 LIPID TESTING 1962 HIV SCREENING 1977 HEPATITIS C SCREENING 11/01/1980 DTAP/TDAP/TD VACCINES (1 - Tdap) 1981 PNEUMOCOCCAL VACCINE 50+ (1 of 1 - PCV) 2012 ZOSTER VACCINE (1 of 2) 2012 DEPRESSION SCREENING 08/16/2024 COVID-19 VACCINE ( - 2024-2 6 season) 2025 INFLUENZA VACCINE (#1) 2025 Respiratory Syncytial Virus (RSV) Vaccine Pt: or over 60 yrs (1 - 1-dose 75+ series) 2037 HEPATITIS B VACCINE Aged Out No longe r eligible based on patient's age to complete this topic HIB VACCINE Aged Out No longer eligi ble based on patient's age to complete this topic HPV VACCINE Aged Out No longer eligi ble based on patient's age to complete this topic MENINGOCOCCAL (Group B) VACC INE SHARED DECISION-MAKING Aged Out No longer eligibl e based on patient's age to complete this topic MENINGOCOCCAL GROUPS A/C/Y/W VACCINE Aged Out No longer eligible b ased on patient's age to complete this topic [place] [address] [place] [address]
[2025-08-13] MEDS: CLINDAMYCIN HCL 150 MG CAP 450 MG PO (18:21)
[2025-08-13] MEDS: RIVAROXABAN 10 MG TABLET 20 MG PO (18:22)
[2025-08-13 18:23] VITALS: BP 148/95; PULSE 86; RESP 20; O2SAT 98
--- NOTE | 2025-08-13 18:35 | PC.NURSE ---
arrangement for doppler at 7am 08-14-25 with xray dept . order to admissions and with pt.
== END 2025-08-13 18:23 | disposition home or self-care (01) ==
PROVIDERS: Emergency Provider Emergency Medicine; PCP Family Medicine
DX: L03.115 Cellulitis of right lower limb (principal); S80.01XA Contusion of right knee, initial encounter; Z86.718 Personal history of other venous thrombosis and embolism; W00.0XXA Fall on same level due to ice and snow, initial encounter
CPT/HCPCS: 73562; 99283; A9270

== ENCOUNTER 2025-08-14 13:27 | Outpatient (CLI) | payer BC, SELFPAY ==
--- NOTE | ~2025-08-14 | US_ITS ---
EXAMINATION:US venous doppler LE RT INDICATION:Right knee and calf pain TECHNIQUE: Multiple grayscale, color flow and Doppler images of the right lower extremity deep venous systems were obtained and reviewed. COMPARISON:No prior studies for comparison. FINDINGS: The common femoral, superficial femoral and popliteal veins demonstrate normal respiratory variation, augmentation and compressibility. Color flow is also seen within the posterior tibial, peroneal, greater saphenous and profunda veins. IMPRESSION: 1: No lower extremity deep venous thrombosis. Reviewed, dictated and finalized at location O. EAD BUILDER
--- OUTSIDE RECORDS SUMMARY | 2025-08-14 13:44 | XMS_ITS | Clinical Summary ---
Author Organization [facility] [employer] Address [address] [place] [address] Care Team Providers Care Java Mobile Developer Name Role Phone Unavailable Primary Care Provider Unavailabl e Source Comments [facility] [employer],non-owned Affiliates and Associated Physician Practices is amultiple site organization consisting of ambulatory clinics and hospital sitesin [place], [place], [place] and [place]. This disclosure is being madepursuant to the Care Everywhere program and may not contain all information available regarding this patient. 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
--- OUTSIDE RECORDS SUMMARY | 2025-08-14 13:44 | XMS_ITS | Clinical Summary ---
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 Gender Identity Not on file Sexual Orientation [...] Description 02/01/2026 8:45 AM CDT Office Visit [facility] Oncology and Hematology [facility] [address] [facility] [address] [place] [address] Vaughn Pelletier MD [address] [facility] [address] [place] [address] Health Maintenance Due Date Last [...] - 1-dose 75+ series) 2037 Care Teams Interlibrary Loan Specialist Relationship Specialty Start Date End Date Raina Haque MD [address] [place] [address] PCP - General Family Practice 10/23/21
--- OUTSIDE RECORDS SUMMARY | 2025-08-14 13:44 | XMS_ITS | Clinical Summary ---
Author Organization [facility] Address [address] [place] [address] Care Team Providers Care Legal Researcher Name Role Phone Unavailable Primary Care Provider [...] patient's age to complete this topic Insurance [facility]
== END 2025-08-14 13:28 | disposition home or self-care (01) ==
PROVIDERS: PCP Family Medicine; Visit Provider Emergency Medicine
DX: M79.89 Other specified soft tissue disorders (principal)
CPT/HCPCS: 93971